=== PATIENT | female | born 1955 | race Caucasian/White ===

== ENCOUNTER → 2017-04-19 | Outpatient (CLI) | payer OTHER ==
--- NOTE | 2017-04-19 18:05 | PCVCIMAG ---
APPROVED REPORT Study performed: 04/19/2017 14:45:02 EXAM: Comprehensive 2D, Doppler, and color-flow Echocardiogram Patient Location: Echo lab Status: routine Other Information Study Quality: Adequate Risk Factors: Cardiac Risk Factors: HTN, Hyperlipidemia Indications Dyspnea 2D Dimensions LVEF(%): 68.65 (>50%) IVSd: 9.51 (7-11mm) LVDd: 50.76 mm PWd: 9.57 (7-11mm) LVDs: 31.16 (25-40mm) Left Atrium: 40.56 (27-40mm) Aortic Root: 28.34 mm LV Single Plane 4CH: 56.95 % LV Single Plane 2CH: 62.60 %Stanton's LVEF: 59.78 % Biplane EF: 60.2 % Volumes Left Atrial Volume (Systole) Single Plane 4CH: 63.94 mLSingle Plane 2CH: 67.17 mL LA ESV Index: 31.00 mL/m2 Aortic Valve AoV Peak Bjorn.: 1.83 m/s AO Peak Gr.: 13.38 mmHgLVOT Max P.87 mmHg LVOT Max V: 1.10 m/s Mitral Valve E/A Ratio: 1.5 MV Decel. Time: 193.04 ms MV E Max Bjorn.: 0.69 m/s MV A Bjorn.: 0.47 m/s IVRT: 89.97 ms Pulmonary Valve PV Peak Bjorn.: 0.85 m/sPV Peak Gr.: 2.92 mmHg Pulmonary Vein P Vein S: 0.78 m/sP Vein A: 0.31 m/s P Vein D: 0.57 m/sP Vein A Dur.: 103.8 msec P Vein S/D Ratio: 1.37 Tricuspid Valve TR Peak Bjorn.: 2.77 m/s TR Peak Gr.: 30.77 mmHg Left Ventricle The left ventricle is normal size. There is normal LV segmental wall motion. There is normal left ventricular wall thickness. Left ventricular systolic function is normal. The left ventricular ejection fraction is within the normal range. LVEF is 55-60%. The left ventricular diastolic function is normal. Right Ventricle The right ventricle is normal size. The right ventricular systolic function is normal. Atria The left atrium size is normal. Atrial septal aneurysmal motion is present without PFO. The right atrium size is normal. Aortic Valve The aortic valve is normal in structure. No aortic regurgitation is present. There is no aortic valvular stenosis. Mitral Valve The mitral valve is normal in structure. Mild mitral regurgitation. No evidence of mitral valve stenosis. Tricuspid Valve The tricuspid valve is normal in structure. Mild tricuspid regurgitation with PAP of 38 mmHg. Pulmonic Valve The pulmonary valve is normal in structure. There is no pulmonic valvular regurgitation. Great Vessels The aortic root is normal in size. IVC is normal in size and collapses with >50% inspiration Pericardium There is no pericardial effusion. <Conclusion> The left ventricle is normal size. There is normal left ventricular wall thickness. LVEF is 55-60%. The right ventricle is normal size. The left atrium size is normal. The aortic valve is normal in structure. Mild mitral regurgitation. There is no pericardial effusion.
== END | disposition home or self-care (01) ==
LOC: PCVCIMAG 14:51
PROVIDERS: ATTEND Internal Medicine Cardiovascular Disease
DX: I34.0 Nonrheumatic mitral (valve) insufficiency (principal); Q21.1 Atrial septal defect; I07.1 Rheumatic tricuspid insufficiency; M19.90 Unspecified osteoarthritis, unspecified site; E03.9 Hypothyroidism, unspecified; I10 Essential (primary) hypertension; I25.2 Old myocardial infarction; Z90.49 Acquired absence of other specified parts of digestive tract; Z90.710 Acquired absence of both cervix and uterus; Z87.891 Personal history of nicotine dependence; Z79.82 Long term (current) use of aspirin
CPT/HCPCS: 80061; 93005; 93306; G0463